=== PATIENT | female | born 2000 | race Caucasian/White ===

== ENCOUNTER 2019-03-05 09:27 | Emergency (ER) | payer OTHER ==
[2019-03-05 09:34] VITALS: RESP 18
[2019-03-05] MEDS ORDERED: SODIUM CHLORIDE 0.9% 1,000 ML IV STA (10:18)
[2019-03-05] MEDS ORDERED: KETOROLAC 30 MG/ML 1 ML VIAL IVP STA (10:18)
[2019-03-05] MEDS ORDERED: ONDANSETRON 4 MG/2 ML VIAL IVP STA (10:18)
--- NOTE | 2019-03-05 10:22 | ED ---
Abdominal Pain HPI - General Chief Complaint: Abdominal Pain Stated Complaint: abd pain Time Seen by Provider: 03/05/19 10:06 Source: patient, RN notes reviewed, old records reviewed Mode of arrival: ambulatory Limitations: no limitations - History of Present Illness Initial Comments: Patient is a 18-year-old female presents emergency department today complaining of right lower quadrant abdominal pain returns or back. Patient reports worsening pain for the past 4 days. 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 Patient states that she has had her last menstrual period last week and had some diarrhea during that time. Patient denies any fevers or chills. She denies any chest pain or shortness breath. Patient states that she's had some nausea but no specific vomiting. Denies any vaginal discharge. - Related Data Previous Rx's Medication Instructions Recorded Bisacodyl [Dulcolax] 10 mg PO ONCE #20 tablet. 03/05/19 Allergies Allergy/AdvReac Type Severity Reaction Status Date / Time Penicillins Allergy Unknown Verified 03/05/19 09:50 Childhood Fish Containing Products AdvReac Nausea & Verified 03/05/19 09:50 Vomiting Review of Systems ROS Statement: Those systems with pertinent positive or pertinent negative responses have been documented in the HPI. ROS Other: All systems not noted in ROS Statement are negative. 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 No acute distress. Resting comfortably in bed. Limitations: no limitations General appearance: alert, in no apparent distress Head exam: Present: atraumatic, normocephalic, normal inspection Eye exam: Present: normal appearance, PERRL, EOMI. Absent: scleral icterus, conjunctival injection, periorbital swelling ENT exam: Present: normal exam, mucous membranes moist Neck exam: Present: normal inspection. Absent: tenderness, meningismus, lymphadenopathy Respiratory exam: Present: normal lung sounds bilaterally. Absent: respiratory distress, wheezes, rales, rhonchi, stridor Cardiovascular Exam: Present: regular rate, normal rhythm, normal heart sounds. Absent: systolic murmur, diastolic murmur, rubs, gallop, clicks GI/Abdominal exam: Present: soft, tenderness (Minimal right lower quadrant tenderness), normal bowel sounds, other (Evidence of scars over the abdomen from patient's splenectomy.). Absent: distended, guarding, rebound, rigid Extremities exam: Present: normal inspection, full ROM, normal capillary refill. Absent: tenderness, pedal edema, joint swelling, calf tenderness Back exam: Present: normal inspection Neurological exam: Present: alert, oriented X3, CN II-XII intact Psychiatric exam: Present: normal affect, normal mood Course Vital Signs 03/05/19 09:31 Temperature 97.9 F Pulse Rate 83 Respiratory 18 Rate Blood Pressure 112/67 O2 Sat by Pulse 98 Oximetry Medical Decision Making - Medical Decision Making Patient is a 18-year-old female presents return today with complaints of right- sided abdominal pain polyuria the past 4 days. History of splenectomy. Patient was given IV fluids labwork obtained. Patient was given pain medication. Patient's labwork was unremarkable. Concern for splenectomy infectious disease Patient was given 60 and pelvis to rule out appendicitis. CT shows evidence of mesenteric adenitis. No signs of acute appendicitis. Patient urinalysis shows no significant infection she denies any vaginal discharge or concern for CVA. Patient advised of these findings. She is also has a significant stool burn on the right side. Discussed encouraging bowel movements with stool softeners and close follow-up with PCP. All questions answered return parameters were discussed. - Lab Data Result diagrams: 03/05/19 10:30 03/05/19 10:30 Lab Results 03/05/19 03/05/19 03/05/19 Range/Units 10:30 10:30 10:30 WBC 7.5 (4.0-11.0) k/uL RBC 4.47 (3.80-5.40) m/uL Hgb 13.5 (11.4-16.0) gm/dL Hct 42.7 (34.0-46.0) % MCV 95.4 (80.0-100.0) fL MCH 30.2 (25.0-35.0) pg MCHC 31.6 (31.0-37.0) g/dL RDW 13.9 (11.5-15.5) % Plt Count 539 H (150-450) k/uL Neutrophils % 43 % Lymphocytes % 39 % Monocytes % 8 % Eosinophils % 5 % Basophils % 1 % Neutrophils # 3.2 (1.3-7.7) k/uL Lymphocytes # 3.0 (1.0-4.8) k/uL Monocytes # 0.6 (0-1.0) k/uL Eosinophils # 0.4 (0-0.7) k/uL Basophils # 0.1 (0-0.2) k/uL PT (9.0-12.0) sec INR (<1.2) APTT (22.0-30.0) sec Sodium 139 (137-145) mmol/L Potassium 4.3 (3.5-5.1) mmol/L Chloride 108 H (98-107) mmol/L Carbon Dioxide 25 (22-30) mmol/L Anion Gap 6 mmol/L BUN 14 (7-17) mg/dL Creatinine 0.54 (0.52-1.04) mg/dL Est GFR (CKD-EPI)AfAm >90 (>60 ml/min/1.73 sqM) Est GFR (CKD-EPI)NonAf >90 (>60 ml/min/1.73 sqM) Glucose 90 (74-99) mg/dL Plasma Lactic Acid Oscar (0.7-2.0) mmol/L Calcium 9.6 (8.4-10.2) mg/dL Total Bilirubin 0.3 (0.2-1.3) mg/dL AST 20 (14-36) U/L ALT 28 (9-52) U/L Alkaline Phosphatase 59 (38-126) U/L Total Protein 7.2 (6.3-8.2) g/dL Albumin 4.1 (3.5-5.0) g/dL Amylase 38 (30-110) U/L Lipase 68 (23-300) U/L Urine Color Urine Appearance (Clear) Urine pH (5.0-8.0) Ur Specific [place] (1.001-1.035) Urine Protein (Negative) Urine Glucose (UA) (Negative) Urine Ketones (Negative) Urine Blood (Negative) Urine Nitrite (Negative) Urine Bilirubin (Negative) Urine Urobilinogen (<2.0) mg/dL Ur Leukocyte Esterase (Negative) Urine RBC (0-5) /hpf Urine WBC (0-5) /hpf Ur Squamous Epith Cells (0-4) /hpf Urine Bacteria (None) /hpf Urine Mucus (None) /hpf Urine HCG, Qual Not Detected (Not Detectd) 03/05/19 03/05/19 03/05/19 Range/Units 10:30 10:30 10:30 WBC (4.0-11.0) k/uL RBC (3.80-5.40) m/uL Hgb (11.4-16.0) gm/dL Hct (34.0-46.0) % MCV (80.0-100.0) fL MCH (25.0-35.0) pg MCHC (31.0-37.0) g/dL RDW (11.5-15.5) % Plt Count (150-450) k/uL Neutrophils % % Lymphocytes % % Monocytes % % Eosinophils % % Basophils % % Neutrophils # (1.3-7.7) k/uL Lymphocytes # (1.0-4.8) k/uL Monocytes # (0-1.0) k/uL Eosinophils # (0-0.7) k/uL Basophils # (0-0.2) k/uL PT 10.0 (9.0-12.0) sec INR 0.9 (<1.2) APTT 26.3 (22.0-30.0) sec Sodium (137-145) mmol/L Potassium (3.5-5.1) mmol/L Chloride (98-107) mmol/L Carbon Dioxide (22-30) mmol/L Anion Gap mmol/L BUN (7-17) mg/dL Creatinine (0.52-1.04) mg/dL Est GFR (CKD-EPI)AfAm (>60 ml/min/1.73 sqM) Est GFR (CKD-EPI)NonAf (>60 ml/min/1.73 sqM) Glucose (74-99) mg/dL Plasma Lactic Acid Oscar 1.0 (0.7-2.0) mmol/L Calcium (8.4-10.2) mg/dL Total Bilirubin (0.2-1.3) mg/dL AST (14-36) U/L ALT (9-52) U/L Alkaline Phosphatase (38-126) U/L Total Protein (6.3-8.2) g/dL Albumin (3.5-5.0) g/dL Amylase (30-110) U/L Lipase (23-300) U/L Urine Color Yellow Urine Appearance Cloudy H (Clear) Urine pH 6.0 (5.0-8.0) Ur Specific [place] 1.032 (1.001-1.035) Urine Protein Trace H (Negative) Urine Glucose (UA) Negative (Negative) Urine Ketones Negative (Negative) Urine Blood Negative (Negative) Urine Nitrite Negative (Negative) Urine Bilirubin Negative (Negative) Urine Urobilinogen 2.0 (<2.0) mg/dL Ur Leukocyte Esterase Negative (Negative) Urine RBC 2 (0-5) /hpf Urine WBC 4 (0-5) /hpf Ur Squamous Epith Cells 18 H (0-4) /hpf Urine Bacteria Rare H (None) /hpf Urine Mucus Rare H (None) /hpf Urine HCG, Qual (Not Detectd) - Radiology Data Radiology results: report reviewed CT shows normal caliber appendix is visualized. Broad to mild enlarged right l ower quadrant mesenteric lymph nodes measuring 9 mm likely reactive postinflammatory. Correlating for possible mesenteric adenitis. Moderate stool in the right side of the colon. Primary's family make to me noted. May megaly noted 21.7 cm. Otherwise no acute inflammatory processes identified in the abdomen or pelvis to explain patient's symptoms. This was read by Dr. Bravo. Disposition Clinical Impression: Constipation, Mesenteric adenitis Disposition: HOME SELF-CARE Condition: Good Instructions (If sedation given, give patient instructions): Mesenteric Adenitis (ED) Additional Instructions: Patient is to rest, increase fluid intake. Follow-up with her primary care physician. Return to emergency department if any alarming signs or symptoms occur. Use a stool softeners to promote bowel habits. Prescriptions: Bisacodyl [Dulcolax] 10 mg PO ONCE #20 tablet.dr Is patient prescribed a controlled substance at d/c from ED?: No Referrals: Lakia Langley MD [Primary Care Provider] - 1-2 days Time of Disposition: 12:15
[2019-03-05 10:47] LABS: Appearance,Urine Cloudy (Clear); Bacteria,Urine Rare /hpf; Basophils # (A) 0.1 k/uL (0-0.2); Basophils % (A) 1 %; Bilirubin,Urine Negative (Negative); Blood,Urine Negative (Negative); Color,Urine Yellow; Eosinophils # (A) 0.4 k/uL (0-0.7); Eosinophils % (A) 5 %; Glucose,Urine (UA) Negative (Negative); HCT 42.7 % (34.0-46.0); HGB 13.5 gm/dL (11.4-16.0); Ketones,Urine Negative (Negative); Leukocyte Esterase,Urine Negative (Negative); Lymphocytes % (A) 39 %; MCH 30.2 pg (25.0-35.0); MCHC 31.6 g/dL (31.0-37.0); MCV 95.4 fL (80.0-100.0); Monocytes # (A) 0.6 k/uL (0-1.0); Monocytes % (A) 8 %; Mucus,Urine Rare /hpf; Neutrophils # (A) 3.2 k/uL (1.3-7.7); Neutrophils % (A) 43 %; Nitrite,Urine Negative (Negative); Platelet Count 539 k/uL (150-450); Protein,Urine Trace (Negative); RBC 4.47 m/uL (3.80-5.40); RBC,Urine 2 /hpf (0-5); RDW 13.9 % (11.5-15.5); Specific Gravity,Urine 1.032 (1.001-1.035); Squamous Epithelial Cell,Urine 18 /hpf (0-4); WBC 7.5 k/uL (4.0-11.0); WBC,Urine 4 /hpf (0-5)
[2019-03-05 10:57] LABS: ALT 28 U/L (9-52); AST 20 U/L (14-36); Albumin 4.1 g/dL (3.5-5.0); Alkaline Phosphatase 59 U/L (38-126); Amylase 38 U/L (30-110); Anion Gap 6 mmol/L; Blood Urea Nitrogen 14 mg/dL (7-17); Calcium 9.6 mg/dL (8.4-10.2); Carbon Dioxide 25 mmol/L (22-30); Chloride 108 mmol/L (98-107); Glucose 90 mg/dL (74-99); Lipase 68 U/L (23-300); Potassium 4.3 mmol/L (3.5-5.1); Sodium 139 mmol/L (137-145); Total Bilirubin 0.3 mg/dL (0.2-1.3); Total Protein 7.2 g/dL (6.3-8.2)
[2019-03-05 10:58] LABS: INR 0.9 (<1.2); Partial Thromboplastin Time 26.3 sec (22.0-30.0)
--- NOTE | 2019-03-05 12:09 | CT ---
EXAMINATION TYPE: CT abdomen pelvis w con DATE OF EXAM: 03/05/2019 COMPARISON: NONE HISTORY: 18-year-old female RLQ pain. 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 TECHNIQUE: Contiguous axial scanning of the abdomen and pelvis following administration of 100 ml Omn ipaque 300 IV contrast. Coronal/sagittal reconstructions performed. Note that there was technical err or with injection starting before the table position. Only the delayed scan was performed. CT DLP: 551.3 mGycm Automated exposure control for dose reduction was used. FINDINGS: Heart normal size without pericardial effusion. Lung bases clear without pleural effusion. Liver enlarged measuring 21.7 cm there is no focal liver lesion. No biliary ductal dilatation. Gallbladder, adrenal glands, kidneys, and pancreas appear within normal limits. The spleen is surgically absent. Surgical clips are present in the left suprarenal left subphrenic re gion. No dilated small bowel, free fluid, or free air. Normal caliber appendix is visualized. A few mildly enlarged right lower quadrant mesenteric lymph nodes are demonstrated measuring up to 9 mm, reference coronal image 39. Moderate stool in the right side of the colon. No pericolonic inflammatory change seen. Uterus anteverted. Both ovaries are visualized. Suspected 1.9 cm dominant follicle or functional cyst in the left ovary. No pelvic free fluid. Some prominent but nonenlarged inguinal lymph nodes measure up to 1.1 cm. Bones: No osseous destructive process. IMPRESSION: 1. NORMAL CALIBER APPENDIX IS VISUALIZED. 2. BORDERLINE TO MILDLY ENLARGED RIGHT LOWER QUADRANT MESENTERIC LYMPH NODES MEASURING UP TO 9 MM LIK EMILY REACTIVE/POST INFLAMMATORY. CORRELATE FOR POSSIBLE MESENTERIC ADENITIS. 3. MODERATE STOOL IN THE RIGHT SIDE OF THE COLON. 4. PRIOR SPLENECTOMY. 5. HEPATOMEGALY (21.7 CM). 6. OTHERWISE, NO ACUTE INFLAMMATORY PROCESS IDENTIFIED IN THE ABDOMEN OR PELVIS TO EXPLAIN THE PATIEN T'S SYMPTOMS.
[2019-03-05 12:54] VITALS: BP 112/70; PULSE 71; TEMP 97.8
== END 2019-03-05 12:51 | disposition home or self-care (01) ==
LOC: EC 09:27
DX: K59.00 Constipation, unspecified (principal); I88.0 Nonspecific mesenteric lymphadenitis; Z90.81 Acquired absence of spleen; Z88.0 Allergy status to penicillin; Z91.013 Allergy to seafood
CPT/HCPCS: 36415; 80053; 82150; 83605; 83690; 85025; 85610; 85730; 81001; 81025; 87040; 87086; 74177; 99284; 96374; 96375; 96361; J2405; J1885; Q9967

== ENCOUNTER 2019-03-24 20:45 | Emergency (ER) | payer OTHER ==
[2019-03-24] MEDS ORDERED: IBUPROFEN 400 MG TAB PO STA ×2 (21:42→22:27)
--- NOTE | 2019-03-24 21:45 | ED ---
Lower Extremity Injury HPI - General Chief Complaint: Extremity Injury, Lower Stated Complaint: Ankle injury Time Seen by Provider: 03/24/19 21:07 Source: patient Mode of arrival: wheelchair Limitations: physical limitation - History of Present Illness Initial Comments: is a 18-year-old woman who complains of having left foot and ankle pain after she states she twisted it while running at the gas station. Injury occurred this evening. She denies previous injury or surgery. Patient denies numbness or loss of motor function. No pain up into the knee. No other injuries. MD Complaint: ankle injury, foot injury Onset/Timin -: hour(s) - Related Data Previous Rx's Medication Instructions Recorded Bisacodyl [Dulcolax] 10 mg PO ONCE #20 tablet. 03/05/19 Allergies Allergy/AdvReac Type Severity Reaction Status Date / Time Penicillins Allergy Unknown Verified 03/24/19 21:06 Childhood Fish Containing Products AdvReac Nausea & Verified 03/24/19 21:06 Vomiting Review of Systems ROS Statement: Those systems with pertinent positive or pertinent negative responses have been documented in the HPI. ROS Other: All systems not noted in ROS Statement are negative. 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 Capillary refill normal.) Extremities exam: Present: normal inspection, tenderness (The patient has tenderness to the lateral aspect of the left midfoot. Also tenderness to the distal aspect of the lateral malleolus. Trace of swelling. No palpable deformity. Neurovascular function intact.), normal capillary refill. Absent: pedal edema, calf tenderness Neurological exam: Absent: motor sensory deficit Course Vital Signs 03/24/19 21:04 Temperature 98.7 F Pulse Rate 99 Respiratory 18 Rate Blood Pressure 128/78 O2 Sat by Pulse 98 Oximetry Disposition Clinical Impression: Sprain of foot, left Disposition: HOME SELF-CARE Condition: Fair Instructions (If sedation given, give patient instructions): Ankle Sprain (ED), Foot Sprain (ED) Is patient prescribed a controlled substance at d/c from ED?: No Referrals: Lakia Langley MD [Primary Care Provider] - 1-2 days
--- NOTE | 2019-03-24 22:15 | XR ---
EXAM: XR Left Foot Complete, 3 or More Views CLINICAL HISTORY: ITS.REASON XR Reason: Pain TECHNIQUE: Frontal, lateral and oblique views of the left foot. COMPARISON: No relevant prior studies available. FINDINGS: Bones/joints: No acute fracture. No dislocation. Soft tissues: Unremarkable. No radiopaque foreign body. IMPRESSION: No acute findings.
--- NOTE | 2019-03-24 22:15 | XR ---
EXAM: XR Left Ankle Complete, 3 or More Views CLINICAL HISTORY: ITS.REASON XR Reason: Pain TECHNIQUE: Frontal, lateral and oblique views of the left ankle. COMPARISON: No relevant prior studies available. FINDINGS: Bones/joints: No acute fracture. No dislocation. Soft tissues: Unremarkable. IMPRESSION: No acute findings.
[2019-03-24 22:53] VITALS: BP 112/78; PULSE 98; RESP 16; TEMP 98.2
== END 2019-03-24 22:52 | disposition home or self-care (01) ==
LOC: EC 20:45
DX: S93.602A Unspecified sprain of left foot, initial encounter (principal); Z88.0 Allergy status to penicillin; Z91.013 Allergy to seafood; X50.9XXA Other and unspecified overexertion or strenuous movements or postures, initial encounter; Y93.02 Activity, running; Y92.524 Gas station as the place of occurrence of the external cause
CPT/HCPCS: 99283

== ENCOUNTER 2021-03-01 15:26 | Emergency (ER) | payer OTHER ==
[2021-03-01 15:30] VITALS: BP 109/78; PULSE 113; RESP 20; TEMP 98.1
[2021-03-01] MEDS ORDERED: ACET/COD 300 MG/30 MG STARTER PACK 6 TAB BTL PO STA (15:57)
[2021-03-01] MEDS ORDERED: DOXYCYCLINE 100 MG CAP PO STA (15:57)
--- NOTE | 2021-03-01 16:01 | ED ---
ENT HPI - General Chief complaint: Dental/Oral Stated complaint: dental pain Time Seen by Provider: 03/01/21 15:32 Source: patient Mode of arrival: ambulatory Limitations: no limitations - History of Present Illness Initial comments: 20-year-old female presents to emergency department with a chief complaint of dental pain. States she has not seen a dentist in quite some time. Patient reports the pain began last site is located in the left upper region or oral cavity. Patient reports she believes he has a fractured tooth. She denies any fevers chills or facial swelling. She reports the pain is exacerbated with mastication and alleviated at rest. Reports taking Tylenol Motrin for pain with no significant improvement in symptoms - Related Data Previous Rx's Medication Instructions Recorded bisacodyL [Dulcolax] 10 mg PO ONCE #20 tablet. 03/05/19 Clindamycin [Cleocin] 150 mg PO Q6H #40 capsule 03/01/21 Allergies Allergy/AdvReac Type Severity Reaction Status Date / Time Penicillins Allergy Unknown Verified 03/01/21 15:27 Childhood Fish Containing Products AdvReac Nausea & Verified 03/01/21 15:27 Vomiting Review of Systems ROS Statement: Those systems with pertinent positive or pertinent negative responses have been documented in the HPI. ROS Other: All systems not noted in ROS Statement are negative. 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 History of Any Multi-Drug Resistant Organisms: None Reported Additional Past Surgical History / Comment(s): splenectomy Past Psychological History: No Psychological Hx Reported Smoking Status: Never smoker Past Alcohol Use History: None Reported Past Drug Use History: None Reported General Exam Limitations: no limitations General appearance: alert, in no apparent distress, obese Head exam: Present: atraumatic, normocephalic, normal inspection Eye exam: Present: normal appearance, PERRL, EOMI Pupils: Present: normal accommodation ENT exam: Present: normal exam, mucous membranes moist, TM's normal bilaterally, normal external ear exam. Absent: normal oropharynx (Tenderness on tooth #16. No signs of periapical abscess. no facial swelling.) Neck exam: Present: normal inspection, full ROM. Absent: tenderness Respiratory exam: Present: normal lung sounds bilaterally. Absent: respiratory distress Cardiovascular Exam: Present: regular rate, normal rhythm, normal heart sounds. Absent: systolic murmur Extremities exam: Present: normal inspection, full ROM. Absent: tenderness Back exam: Present: normal inspection, full ROM. Absent: tenderness Neurological exam: Present: alert, oriented X3 Psychiatric exam: Present: normal affect, normal mood Skin exam: Present: warm, dry, intact, normal color Course Vital Signs 03/01/21 15:27 Temperature 98.1 F Pulse Rate 113 H Respiratory 20 Rate Blood Pressure 109/78 O2 Sat by Pulse 99 Oximetry Medical Decision Making - Medical Decision Making 20-year-old female presents to emergency department the chief complaint of dental pain. Physical examination, no signs of periapical abscess. Tenderness at tooth #16. Patient contact information for local [facility]. Patient will be started on clindamycin because she is ALLERGIC to penicillin. Strict return parameters were thoroughly discussed patient was resting agreeable . She will also be discharged with Tylenol 3 starter pack. Disposition Clinical Impression: Toothache Disposition: HOME SELF-CARE Condition: Stable Instructions (If sedation given, give patient instructions): Toothache (ED) Additional Instructions: Take prescribed medication as directed. Follow-up with a dentist. Return to emergency department if symptoms worsen. Prescriptions: Doxycycline Monohydrate [Monodox] 100 mg PO Q12HR #20 cap Is patient prescribed a controlled substance at d/c from ED?: No Referrals: Lakia Langley MD [Primary Care Provider] - 1-2 days Time of Disposition: 16:01
== END 2021-03-01 16:29 | disposition home or self-care (01) ==
LOC: EC 15:26
DX: K08.89 Other specified disorders of teeth and supporting structures (principal); Z88.0 Allergy status to penicillin
CPT/HCPCS: 99282

== ENCOUNTER → 2022-10-28 | Outpatient (CLI) | payer OTHER ==
[2022-10-28 10:41] VITALS: BP 120/76; PULSE 60; RESP 17; TEMP 97.6
--- NOTE | 2022-10-28 10:55 | P.GSHP ---
History of Present Illness H&P Date: 10/28/22 Chief Complaint: Mass right breast Faye is a 22 year old white female seen in consultation for [employer] Gi Escobar regarding a mass in her right breast. She had an ultrasound done on 09-10-22 which revealed a 1.7 cm mass felt to be benign adn repeat ultrasound in 3 months recommended. The patient has felt a lump for about three months, it is located in the upper outer right breast. Is tender. It has not changed in relationship to her menstrual cycle. She has never had anything like this in the past. She is not complaining of any recent trauma or infection in the breast. She delivered a baby one year ago, she breast fed for two weeks. He noted the lump approximately a year after stopping breast-feeding. CAffiene: 1-2 cups coffee/day nicotine: none chocolate: none BCP: nexplanon; since January 2022; lump occured after on BCP Family History: maternal aunt: metastatic breast cancer to bone dx. in her 50's now in her 60's paternal grandmother: breast cancer Hormonal History: menarche: 9 , breat fed: yes, age at : 21 periods regular on BCP Surgical History: tumor on spleen and removed at age 16 not cancer Medical History: none Social History: nictine: none alcohol: none drugs: none - Constitutional Constitutional: Denies chills, Denies fever - EENT Eyes: denies blurred vision, denies pain Ears: deny: decreased hearing, tinnitus Ears, nose, mouth and throat: Denies headache, Denies sore throat - Breasts Breasts: bilateral: as per HPI - Cardiovascular Cardiovascular: Denies chest pain, Denies shortness of breath - Respiratory Respiratory: Denies cough, Denies 7 - Gastrointestinal Gastrointestinal: Denies abdominal pain, Denies diarrhea, Denies nausea, Denies vomiting - Genitourinary (Female) Genitourinary: Denies dysuria, Denies hematuria - Menstruation Menstruation: Reports period normal - Musculoskeletal Musculoskeletal: Denies myalgias - Integumentary Integumentary: Denies pruritus, Denies rash - Neurological Neurological: Denies numbness, Denies weakness - Psychiatric Psychiatric: Reports anxiety - Endocrine Endocrine: Denies fatigue, Denies weight change - Hematologic/Lymphatic Comment: none - Allergic/Immunologic Allergic/Immunologic: Reports as per HPI 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 History of Any Multi-Drug Resistant Organisms: None Reported Additional Past Surgical History / Comment(s): splenectomy Past Psychological History: No Psychological Hx Reported Smoking Status: Never smoker Past Alcohol Use History: None Reported Past Drug Use History: None Reported Medications and Allergies Home Medications Medication Instructions Recorded Confirmed Type Etonogestrel [Nexplanon] 68 mg SQ DIRECTED 10/28/22 10/28/22 History Allergies Allergy/AdvReac Type Severity Reaction Status Date / Time Penicillins Allergy Unknown Verified 10/28/22 10:30 Childhood Fish Containing Products AdvReac Nausea & Verified 10/28/22 10:30 Vomiting Surgical - Exam - General no distress - Eyes normal ocular movement - Neck trachea midline - Respiratory normal respiratory effort - Cardiovascular Rhythm: regular Heart Sounds: normal: S1, S2 - Abdomen Abdomen: soft, non tender, no guarding, no rigid, no rebound - Integumentary normal turgor - Neurologic no disoriented, no combative - Musculoskeletal normal gait, normal posture - Psychiatric oriented to time, oriented to person, oriented to place, speech is normal, memory intact Breast Exam: BRA: 40C inspection: Bilateral grade 2 ptosis Palpation: Right breast: Multiple positional exam fibrocystic changes, there is some full ness in the upper approximate 10:00 region approximately 1-1/2 cm in size corresponding to the radiographic abnormality Right axilla: No adenopathy of concern Left breast: Multi-positional exam fibrocystic changes no dominant masses or nodules of concern Left axilla: No adenopathy of concern Results ultrasound results reviewed Assessment and Plan Assessment: Impression: Fullness right breast at 10 o'clock position corresponding to ultrasound abnormality at this site Family history of breast cancer Prior splenectomy for benign tumor Plan: Review ultrasound with radiologist consider ultrasound-guided core biopsy Clearance with Dr. Roberson prior to this secondary to splenectomy Follow-up after ultrasound-guided core biopsy CC:Gi Hill
== END ==
LOC: WWCWWP 10:08
PROVIDERS: ATTEND Surgery
DX: N60.11 Diffuse cystic mastopathy of right breast (principal); N60.12 Diffuse cystic mastopathy of left breast; Z80.3 Family history of malignant neoplasm of breast; Z90.81 Acquired absence of spleen; Z88.0 Allergy status to penicillin; Z91.013 Allergy to seafood

== ENCOUNTER → 2022-11-17 | Day surgery (SDC) | payer OTHER ==
--- NOTE | 2022-11-17 14:14 | USB ---
Findings: Right breast was scanned for preprocedural ultrasound guided biopsy. Area of concern within the right breast. To be fibroglandular tissue. No focal mass definitively visualized. Incidental note of hypoechoic lesion measuring 6 x 6 mm is present at 9:00 2 cm from the nipple. There may be a hyperechoic fatty hilum within this lesion. Management: Diagnostic Breast Ultrasound of the right breast in 6 months. No focal mass to correlate to target, findings are similar to prior ultrasound and most consistent with dense fibroglandular tissue. Additionally, there is a small hypoechoic lesion which may represent a lymph node versus small fibroadenoma present at 9:00 2 cm from the nipple. Short-term follow-up ultrasound was recommended over tissue sampling. A clinical breast exam by your physician is recommended on an annual basis and results should be correlated with mammographic findings. This exam should not preclude additional follow-up of suspicious palpable abnormalities. Results were given to the patient verbally at the time of exam. Electronically signed and approved by: Husam Bhandari DO
== END ==
LOC: RADUSWWP 12:35
PROVIDERS: ATTEND Surgery
DX: R92.8 Other abnormal and inconclusive findings on diagnostic imaging of breast (principal)